=== PATIENT | female | born 1985 | race Caucasian/White ===

== ENCOUNTER 2023-08-11 12:54 | Emergency (ER) | payer OTHER ==
[~2023-08-11] VITALS: Ht 167.6 cm; Wt 65.8 kg
[2023-08-11 14:19] LABS: HEMATOCRIT 38.3 % (36.0-45.00); HEMOGLOBIN 12.5 g/dL (12.0-15.00); MEAN CELL VOLUME 88.9 fL (80.00-100.00); MEAN CORPUSCULAR HEMOGLOBIN 29.1 pg (27.00-32.0); MEAN CORPUSCULAR HGB CONC 32.7 g/dl (32.0-36.0); PLATELET COUNT 229 K/uL (150-450); RED BLOOD COUNT 4.31 M/uL (4.00-6.00); RED CELL DISTRIBUTION WIDTH 13.9 % (11.5-14.5)
[2023-08-11 14:45] LABS: CREATININE SERUM 0.99 mg/dL (0.55-1.02); GFR 62.77; POTASSIUM 3.55 mEq/L (3.5-5.1)
== END 2023-08-11 15:56 | disposition home or self-care (01) ==
LOC: ER 12:54
PROVIDERS: General Practice
DX: N39.0 Urinary tract infection, site not specified (principal); Z88.0 Allergy status to penicillin; Z88.6 Allergy status to analgesic agent